=== PATIENT | female | born 1975 | race American Indian/Alaskan Native ===

== ENCOUNTER 2020-11-08 13:46 | Emergency (ER) | payer MEDICARE ==
[2020-11-08 14:17] LABS: Basophils % (Auto) 0.9 % (0.0-1.8); Eosinophils # (Auto) 0.1 K/mm3 (0.0-0.4); Eosinophils % (Auto) 2.8 % (0.0-4.3); Hematocrit 36.7 % (30.3-42.9); Hemoglobin 11.7 gm/dl (10.1-14.3); Lymphocytes # (Auto) 1.5 K/mm3 (1.2-5.4); Lymphocytes % (Auto) 38.8 % (13.4-35.0); Mean Corpuscular HGB Conc 32 % (30-34); Mean Corpuscular Volume 84 fl (79-97); Monocytes # (Auto) 0.6 K/mm3 (0.0-0.8); Monocytes % (Auto) 15.4 % (0.0-7.3); Platelet Count 242 K/mm3 (140-440); Red Blood Count 4.39 M/mm3 (3.65-5.03); Red Cell Distribution Width 14.8 % (13.2-15.2)
[2020-11-08 14:23] LABS: INR 0.91 (0.87-1.13)
[2020-11-08 14:24] LABS: Partial Thromboplastin Time 27.6 Sec. (24.2-36.6)
[2020-11-08 14:30] LABS: BUN/Creatinine Ratio 20; Blood Urea Nitrogen 10 mg/dL (7-17); Calcium 9.2 mg/dL (8.4-10.2); Hemolysis Index 8
[2020-11-08] MEDS ORDERED: ASPIRIN 325 MG TAB PO ONE (14:36)
[2020-11-08 14:43] VITALS: BP 131/97
== END 2020-11-08 15:26 | disposition home or self-care (01) ==
LOC: ED 13:46
DX: R47.81 Slurred speech (principal); R29.810 Facial weakness; G32.81 Cerebellar ataxia in diseases classified elsewhere
CPT/HCPCS: 36415; 70450; 80048; 84484; 85025; 85610; 85670; 85730; 93005

== ENCOUNTER 2021-07-15 16:59 | Emergency (ER) | payer MEDICARE ==
[2021-07-15] MEDS ORDERED: METOCLOPRAMIDE 10 MG/2 ML INJ IV ONE (17:05)
[2021-07-15] MEDS ORDERED: diphenhydrAMINE 50 MG/ML VIAL IV ONE (17:05)
--- NOTE | 2021-07-15 17:06 | Event Note ---
Date: 07/15/21 The patient was evaluated in the emergency department for symptoms described in the history of present illness. He/she was evaluated in the context of the global COVID-19 pandemic, which necessitated consideration that the patient might be at risk for infection with the virus that causes COVID-19. Institutional protocols and algorithms that pertain to the evaluation of patients at risk for COVID-19 are in a state of rapid change based on information released by regulatory bodies including the CDC and federal and state organizations. These policies and algorithms were followed during the patient's care in the emergency department. Please note that these policies, procedures and recommendations changed on a rapid basis. EMS documentation not available at time of chart dictation Verbal report received from emergency medical services. Neurology:. Dr Gregg Daniels This patient is a 46-year-old female, who is currently wheelchair-bound, who has a history of severe cerebellar ataxia, who presents to the ER with EMS with a complaint of generalized tremors in her upper extremities, and generalized headache. The patient took Tylenol at home. On examination, EOMI, tongue midline. 5/5 strength in her bilateral upper extremities, patient moves bilateral lower extremities, and sensation is intact to light touch. When distracted, her upper extremity tremors subside. She also has a right lower quadrant ostomy. EMS reports normal vital signs in the field. The patient took Tylenol at home. Patient denies irritative and obstructive urinary symptoms. Treat patient's symptoms with Reglan and Benadryl, obtain noncontrast CT scan of the brain, and obtain appropriate laboratory studies. Detailed history and physical to be performed by oncoming ER provider Vital Signs 07/15/21 17:04 Temperature 98.9 F Pulse Rate 99 H Respiratory 16 Rate Blood Pressure 135/83 [Right] O2 Sat by Pulse 100 Oximetry
[2021-07-15 18:17] LABS: Hematocrit 40.6 % (30.3-42.9); Hemoglobin 12.8 gm/dl (10.1-14.3); Mean Corpuscular HGB Conc 31 % (30-34); Mean Corpuscular Volume 84 fl (79-97); Platelet Count 263 K/mm3 (140-440); Red Blood Count 4.84 M/mm3 (3.65-5.03)
[2021-07-15 18:35] LABS: Alanine Aminotransferase 15 units/L (7-56); Albumin 4.3 g/dL (3.9-5); Blood Urea Nitrogen 12 mg/dL (7-17); Calcium 9.5 mg/dL (8.4-10.2); Hemolysis Index 46
[2021-07-15 18:41] LABS: BUN/Creatinine Ratio 20
--- NOTE | 2021-07-15 18:50 | Cat Scan Report ---
NONENHANCED CT SCAN OF THE HEAD: INDICATION / CLINICAL INFORMATION: 46 years Female; Headache tremors, spino cerebellar ataxia. TECHNIQUE: Routine CT head without contrast. All CT scans at this location are performed using CT dos e reduction for ALARA by means of automated exposure control. COMPARISON: CT scan of the head from 11/08/2020 FINDINGS: BRAIN / INTRACRANIAL CONTENTS: No acute hemorrhage, mass effect, midline shift, hydrocephalus, or acu te, large territorial infarct. As seen in the last CT scan, significant volume loss seen in the cereb ellar hemispheres especially along the superior cerebellar peduncles. Significant volume loss in the moe; midbrain and medulla are normal; compensatory enlargement of fourth ventricle Basal ganglia normal; mild left perisylvian volume loss Moderate cortical involution Normal temporal horn tips suggest normal hippocampi. CT findings unchanged. CRANIOCERVICAL JUNCTION: No significant abnormality. ORBITS: No significant abnormality of visualized orbits. SINUSES / MASTOIDS: No significant abnormality of the visualized paranasal sinuses or mastoid air jacinto ls. ADDITIONAL FINDINGS: None. IMPRESSION: Significant volume loss in the cerebellar hemispheres and brainstem; unchanged Signer Name: Khoa Rosales MD Signed: 07/15/2021 6:45 PM Workstation Name: [id number]
[2021-07-15] MEDS ORDERED: diphenhydrAMINE 25 MG CAP PO ONE (19:01)
[2021-07-15] MEDS ORDERED: ACETAMINOPHEN 325 MG TAB PO ONE (19:01)
[2021-07-15] MEDS ORDERED: METOCLOPRAMIDE 10 MG TAB PO ONE (19:01)
--- NOTE | 2021-07-15 21:58 | Emergency Department Report ---
ED General Adult HPI - General Chief complaint: Headache Stated complaint: Headache/Tremors Time Seen by Provider: 07/15/21 19:01 Source: patient, EMS (Verbal report received from emergency medical services. EMS documentation not available at time of chart dictation ), RN notes reviewed, old records reviewed Mode of arrival: Stretcher Limitations: Physical Limitation - History of Present Illness Initial comments: The patient was evaluated in the emergency department for symptoms described in the history of present illness. He/she was evaluated in the context of the global COVID-19 pandemic, which necessitated consideration that the patient might be at risk for infection with the virus that causes COVID-19. Institutional protocols and algorithms that pertain to the evaluation of patients at risk for COVID-19 are in a state of rapid change based on information released by regulatory bodies including the CDC and federal and state organizations. These policies and algorithms were followed during the patient's care in the emergency department. Please note that these policies, procedures and recommendations changed on a rapid basis. Primary care neurologist, Dr. Gregg Reyes This patient is a 46-year-old female with a history of cerebellar ataxia, and tremors, chronic headaches, who is wheelchair-bound with a colostomy, who presents to the ER today with a complaint of global headache and tremors. Headache is not sudden or thunderclap in nature. Headache is not described as maximal in intensity. Minimal relief with [id number] Tylenol at home. Denies fever, chest pain, abdominal pain, nausea, vomiting or diarrhea. -: Gradual Location: head Severity scale (0 -10): 4 - Related Data Previous Rx's Medication Instructions Recorded Last Taken Type Acetaminophen [Non-Aspirin Extra 500 mg PO Q6HR PRN #30 tablet 07/15/21 Unknown Rx Strength] Ibuprofen [Motrin] 400 mg PO Q8H PRN #30 tablet 07/15/21 Unknown Rx Metoclopramide [Reglan] 10 mg PO QID PRN #30 tablet 07/15/21 Unknown Rx Allergies Allergy/AdvReac Type Severity Reaction Status Date / Time No Known Allergies Allergy Verified 07/15/21 17:05 ED Review of Systems ROS: Stated complaint: Headache/Tremors Other details as noted in HPI Constitutional: denies: fever Eyes: denies: eye discharge ENT: denies: epistaxis Respiratory: denies: cough Cardiovascular: denies: chest pain Gastrointestinal: denies: abdominal pain Neurological: headache ED Past Medical Hx - Past Medical History Additional medical history: Spinocerebellar ataxia - Social History Smoking Status: Never Smoker Substance Use Type: None - Medications Home Medications: Home Medications Medication Instructions Recorded Confirmed Last Taken Type Acetaminophen [Non-Aspirin Extra 500 mg PO Q6HR PRN #30 tablet 07/15/21 Unknown Rx Strength] Ibuprofen [Motrin] 400 mg PO Q8H PRN #30 tablet 07/15/21 Unknown Rx Metoclopramide [Reglan] 10 mg PO QID PRN #30 tablet 07/15/21 Unknown Rx ED Physical Exam - General Limitations: Physical Limitation General appearance: alert, anxious - Head Head exam: Present: atraumatic, normocephalic - Eye Eye exam: Present: normal appearance, PERRL, EOMI. Absent: nystagmus - ENT ENT exam: Present: normal exam, normal orophraynx, mucous membranes moist, normal external ear exam - Neck Neck exam: Present: normal inspection, full ROM. Absent: tenderness, meningismus - Respiratory Respiratory exam: Present: normal lung sounds bilaterally. Absent: respiratory distress, wheezes, rales, rhonchi, stridor, decreased breath sounds - Cardiovascular Cardiovascular Exam: Present: regular rate, normal rhythm, normal heart sounds. Absent: bradycardia, tachycardia, irregular rhythm, systolic murmur, diastolic murmur, rubs, gallop - GI/Abdominal GI/Abdominal exam: Present: soft, other (There is a colostomy noted in the right lower quadrant is draining brown stool, without redness, pus or streaking). Absent: distended, tenderness, guarding, rebound, rigid, pulsatile mass - Extremities Exam Extremities exam: Present: normal inspection, full ROM (Bilateral upper extremities. Intention tremor is noted, however subsides when patient lifts up arms, and decreases when distracted.) - Back Exam Back exam: Present: normal inspection. Absent: tenderness, CVA tenderness (R), CVA tenderness (L), paraspinal tenderness, vertebral tenderness - Neurological Exam Neurological exam: Present: alert, other (There is no facial droop. The tongue is midline. EOMI. 5/5 strength in bilateral upper extremities. 2/5 strength in bilateral lower extremities) - Psychiatric Psychiatric exam: Present: anxious - Skin Skin exam: Present: warm, dry, intact, normal color. Absent: rash ED Course Vital Signs 07/15/21 17:04 Temperature 98.9 F Pulse Rate 99 H Respiratory 16 Rate Blood Pressure 135/83 [Right] O2 Sat by Pulse 100 Oximetry ED Medical Decision Making - Lab Data Result diagrams: 07/15/21 17:59 07/15/21 17:59 Vital Signs 07/15/21 17:04 Temperature 98.9 F Pulse Rate 99 H Respiratory 16 Rate Blood Pressure 135/83 [Right] O2 Sat by Pulse 100 Oximetry Lab Results 07/15/21 07/15/21 07/15/21 Range/Units 17:59 17:59 17:59 WBC 4.2 L (4.5-11.0) K/mm3 RBC 4.84 (3.65-5.03) M/mm3 Hgb 12.8 (10.1-14.3) gm/dl Hct 40.6 (30.3-42.9) % MCV 84 (79-97) fl MCH 26 L (28-32) pg MCHC 31 (30-34) % RDW 15.0 (13.2-15.2) % Plt Count 263 (140-440) K/mm3 Sodium 138 (137-145) mmol/L Potassium 4.0 (3.6-5.0) mmol/L Chloride 100.5 (98-107) mmol/L Carbon Dioxide 23 (22-30) mmol/L Anion Gap 19 mmol/L BUN 12 (7-17) mg/dL Creatinine 0.6 (0.6-1.2) mg/dL Estimated GFR > 60 ml/min BUN/Creatinine Ratio 20 % Glucose 94 (65-100) mg/dL Calcium 9.5 (8.4-10.2) mg/dL Magnesium 2.10 (1.7-2.3) mg/dL Total Bilirubin 0.70 (0.1-1.2) mg/dL AST 27 (5-40) units/L ALT 15 (7-56) units/L Alkaline Phosphatase 66 (35-129) units/L Total Creatine Kinase 275 H (30-135) units/L Total Protein 7.9 (6.3-8.2) g/dL Albumin 4.3 (3.9-5) g/dL Albumin/Globulin Ratio 1.2 % TSH 1.430 (0.270-4.200) mlU/mL - Radiology Data Radiology results: pending, report reviewed, image reviewed NONENHANCED CT SCAN OF THE HEAD: INDICATION / CLINICAL INFORMATION: 46 years Female; Headache tremors, spino cerebellar ataxia. TECHNIQUE: Routine CT head without contrast. All CT scans at this location are performed using CT dose reduction for ALARA by means of automated exposure control. COMPARISON: CT scan of the head from 11/08/2020 FINDINGS: BRAIN / INTRACRANIAL CONTENTS: No acute hemorrhage, mass effect, midline shift, hydrocephalus, or acute, large territorial infarct. As seen in the last CT scan, significant volume loss seen in the cerebellar hemispheres especially along the superior cerebellar p eduncles. Significant volume loss in the moe; midbrain and medulla are normal; compensatory enlargement of fourth ventricle Basal ganglia normal; mild left perisylvian volume loss Moderate cortical involution Normal temporal horn tips suggest normal hippocampi. CT findings unchanged. CRANIOCERVICAL JUNCTION: No significant abnormality. ORBITS: No significant abnormality of visualized orbits. SINUSES / MASTOIDS: No significant abnormality of the visualized paranasal sinuses or mastoid air cells. ADDITIONAL FINDINGS: None. IMPRESSION: Significant volume loss in the cerebellar hemispheres and brainstem; unchanged Signer Name: Khoa Rosales MD Signed: 07/15/2021 5:45 PM Wo rkstation Name: [id number] - Medical Decision Making Differential diagnosis, including the not limited to: Migraine headache, tension headache, cluster headache, electrolyte derangement, thyroid derangement Intention tremor Assessment and plan: 46-year-old female with a known history of cerebellar ataxia, headache, and tremors, who has a wheelchair at home, presenting with worsening headache and tremors. Tremors have subsided. She has a GCS of 15 and is clinically sober at this time. A noncontrast CT scan of the brain is negative for acute findings. Laboratory studies nonactionable. Patient resting comfortably in her stretcher after initial therapeutic intervention. She may follow-up with her outpatient primary care doctor or neurologist. Critical care attestation.: If time is entered above; I have spent that time in minutes in the direct care of this critically ill patient, excluding procedure time. ED Disposition Clinical Impression: Headache, Has a tremor Disposition: 01 HOME / SELF CARE / HOMELESS Is pt being admited?: No Does the pt Need Aspirin: No Condition: Good Additional Instructions: Please continue current outpatient medications. Please continue to use home wheelchair. Please take the prescribed pain medications as needed for headache and physical pain. Please follow-up with your neurologist within the next week. Follow-up with y our primary care doctor within the next 2 weeks. Please return to the emergency room right away with new pain, worsened pain, migration of pain, projectile vomiting, change in mental status, confusion, inability tolerate liquid feeds, new, worsened or different symptoms not present on the initial emergency room evaluation Referrals: FRED REYES MD [Referring] - 3-5 Days
[2021-07-16 05:36] VITALS: BP 131/73
== END 2021-07-16 05:34 | disposition home or self-care (01) ==
LOC: ED 16:59
DX: R51.9 Headache, unspecified (principal); R25.1 Tremor, unspecified; Z79.899 Other long term (current) drug therapy
CPT/HCPCS: 36415; 70450; 80053; 82550; 83735; 84443; 85027; 99284